=== PATIENT | male | born 1970 | race Two or more races ===

== ENCOUNTER 2022-06-01 07:16 | Emergency (ER) | payer SELFPAY ==
[~2022-06-01] VITALS: Ht 177.8 cm; Wt 124.5 kg
[2022-06-01] MEDS ORDERED: KETOROLAC 60MG/2ML VIAL IM ONE (07:45)
[2022-06-01 08:22] VITALS: BP 180/102
[2022-06-01] MEDS ORDERED: IBUP-2028 PO (08:24)
== END 2022-06-01 08:50 | disposition home or self-care (01) ==
LOC: ER 07:16
DX: M25.551 Pain in right hip (principal); M25.561 Pain in right knee; W01.0XXA Fall on same level from slipping, tripping and stumbling without subsequent striking against object, initial encounter; Y93.9 Activity, unspecified; Y92.9 Unspecified place or not applicable
CPT/HCPCS: 73502; 73560; 96372; 99284; J1885

== ENCOUNTER 2023-07-18 00:49 | Emergency (ER) | payer SELFPAY ==
[~2023-07-18] VITALS: Ht 182.9 cm; Wt 113.0 kg
[~2023-07-18 00:49] MED LIST: IBUP-2028 PO
[2023-07-18 01:07] VITALS: O2SAT 94
[2023-07-18] MEDS ORDERED: ASPIRIN 81MG TABLET PO ONE (02:30)
[2023-07-18 02:54] LABS: BASOPHILS % 0.3 % (0.0-2.0); EOSINOPHILS % 1.8 % (0.0-5.0); HEMOGLOBIN. 15.4 g/dL (14.0-18.0); LYMPHOCYTES % 23.3 % (20.0-50.0); MEAN CORPUSCULAR HEMOGLOBIN 31.7 pg (28.0-32.0); MEAN CORPUSCULAR HGB CONC 34.1 g/dL (31.0-37.0); MEAN CORPUSCULAR VOLUME 92.8 fL (80.0-94.0); MEAN PLATELET VOLUME 9.4 fl (7.4-10.4); MONOCYTES % 6.8 % (2.0-8.0); NEUTROPHILS % 67.8 % (40.0-76.0); PLATELET 142 x1000/uL (130-400); RED BLOOD CELL COUNT 4.85 mill/uL (4.7-6.1); WHITE BLOOD COUNT 8.5 x1000/uL (4.5-11.0)
[2023-07-18 03:01] LABS: CHLORIDE 106 mEq/L (98-107); INDEX HEMOLYSI 1 (1-3); INDEX ICTERIC 1 (1-4); INDEX LIPEMIC 1 (1-3); SODIUM 138 mEq/L (136-145)
[2023-07-18 03:12] LABS: ALANINE AMINOTRANSFERASE 73 IU/L (13-61); ALBUMIN 3.5 g/dL (3.4-5.0); ASPARTATE AMINOTRANSFERASE 65 IU/L (15-37); BILIRUBIN TOTAL 0.6 mg/dL (0.1-1.0); CALCIUM 8.8 mg/dL (8.5-10.1); CARBON DIOXIDE 27 mEq/L (21-32); CREATININE 0.9 mg/dL (0.6-1.3); ETHANOL BLOOD < 10 mg/dL (<10); GLUCOSE 126 mg/dL (70-105); NT PRO B-TYPE NATRIURETIC PEP 19 pg/mL (5-125); PROTEIN TOTAL 7.8 g/dL (6.0-8.3); TROPONIN I HIGH SENSITIVITY 5 ng/L (<78); UREA NITROGEN BLOOD 16 mg/dL (7-21)
[2023-07-18 03:43] LABS: *AMPHETAMINES SCREEN URINE NEGATIVE (NEGATIVE); *BARBITURATES SCREEN URINE NEGATIVE (NEGATIVE); *BENZODIAZEPINES SCREEN URINE NEGATIVE (NEGATIVE); *COCAINE SCREEN URINE NEGATIVE (NEGATIVE); CANNABINOID URINE SCREEN NEGATIVE (NEGATIVE); ECSTASY MDMA SCREEN URINE NEGATIVE (NEGATIVE); METHADONE URINE SCREEN NEGATIVE (NEGATIVE); OPIATES URINE SCREEN NEGATIVE (NEGATIVE); PHENCYCLIDINE URINE SCREEN NEGATIVE (NEGATIVE)
[2023-07-18 04:04] VITALS: BP 145/92; PULSE 98; RESP 16; TEMP 98.2
== END 2023-07-18 04:04 | disposition home or self-care (01) ==
LOC: ER 00:49
DX: R42 Dizziness and giddiness (principal); E03.9 Hypothyroidism, unspecified; F17.200 Nicotine dependence, unspecified, uncomplicated
CPT/HCPCS: 80053; 80305; 80320; 83880; 84443; 85025; 85379; 84484; 36415; 71045; 93005; 99285; Z7610; G0480

== ENCOUNTER 2023-09-18 19:46 | Emergency (ER) | payer SELFPAY ==
[~2023-09-18] VITALS: Ht 182.9 cm; Wt 109.0 kg
[2023-09-18 20:28] VITALS: TEMP 99.5; O2SAT 95
[2023-09-18] MEDS ORDERED: KETOROLAC 15MG/ML VIAL IM ONE (20:30)
[2023-09-18] MEDS ORDERED: LIDO700A15 TP (21:25)
[2023-09-18] MEDS ORDERED: NAPR-1176 MT (21:25)
[2023-09-18] MEDS ORDERED: CYCL5TAB MT (21:25)
[2023-09-18 21:45] VITALS: BP 169/82; PULSE 93; RESP 16
== END 2023-09-18 21:44 | disposition home or self-care (01) ==
LOC: ER 19:46
DX: M54.50 Low back pain, unspecified (principal)
CPT/HCPCS: 96372; 99283; J1885; Z7610

== ENCOUNTER 2024-07-02 14:04 | Emergency (ER) | payer OTHER ==
[~2024-07-02] VITALS: Ht 175.3 cm; Wt 95.2 kg
[~2024-07-02 14:04] MED LIST changes: +CYCL5TAB MT; +LIDO700A15 TP; +NAPR-1176 MT
[2024-07-02 14:47] VITALS: BP 170/97; PULSE 66; RESP 16; TEMP 97.8; O2SAT 97
[2024-07-02] MEDS ORDERED: CEFTRIAXONE SODIUM 500MG VIAL IM ONE (16:45)
[2024-07-02 18:12] LABS: CLARITY URINE CLEAR (CLEAR); COLOR URINE YELLOW (YELLOW); GLUCOSE URINE NEGATIVE (NEGATIVE); KETONES URINE NEGATIVE (NEGATIVE); LEUKOCYTE ESTERASE URINE TRACE (NEGATIVE); NITRITE URINE NEGATIVE (NEGATIVE); OCCULT BLOOD URINE NEGATIVE (NEGATIVE); PH URINE 5.5 (4.5-8.0); PROTEIN URINE NEGATIVE (NEGATIVE); SPECIFIC GRAVITY URINE 1.022 (1.005-1.030)
[2024-07-02] MEDS ORDERED: DOXY100C5 MT (18:17)
[2024-07-02 18:56] LABS: BACTERIA URINE TRACE; RBC URINE NONE SEEN /hpf (0-2); SQUAMOUS EPITHELIAL CELL URINE FEW /lpf (RARE/1+); WBC URINE 0-2 /hpf (0-2)
[2024-07-02] MEDS: CEFTRIAXONE SODIUM 500MG VIAL IM NR (19:22)
[2024-07-05 04:08] LABS: CHLAMYDIA TRACHOMATIS NAA Negative (Negative); NEISSERIA GONORRHOEAE NAA Negative (Negative)
== END 2024-07-02 19:40 | disposition home or self-care (01) ==
LOC: ER 14:04
DX: Z20.2 Contact with and (suspected) exposure to infections with a predominantly sexual mode of transmission (principal); Z79.899 Other long term (current) drug therapy
CPT/HCPCS: 99283; 87491; 87591; 81003; 96372; J0696

== ENCOUNTER 2024-10-16 00:45 | Emergency (ER) | payer OTHER ==
[~2024-10-16] VITALS: Ht 182.9 cm; Wt 109.0 kg
[~2024-10-16 00:45] MED LIST changes: -CYCL5TAB MT; +CYCL5TAB3 MT; +DOXY100C5 MT
[2024-10-16 00:54] VITALS: O2SAT 96
[2024-10-16 03:07] LABS: CLARITY URINE CLOUDY (CLEAR); COLOR URINE YELLOW (YELLOW); GLUCOSE URINE NEGATIVE (NEGATIVE); KETONES URINE NEGATIVE (NEGATIVE); LEUKOCYTE ESTERASE URINE NEGATIVE (NEGATIVE); NITRITE URINE NEGATIVE (NEGATIVE); OCCULT BLOOD URINE NEGATIVE (NEGATIVE); PROTEIN URINE NEGATIVE (NEGATIVE); SPECIFIC GRAVITY URINE 1.017 (1.005-1.030); UROBILINOGEN URINE 0.2 E.U./dL (0.2-1.0)
[2024-10-16 03:12] LABS: BASOPHILS % 0.4 % (0.0-2.0); EOSINOPHILS % 1.8 % (0.0-5.0); HEMATOCRIT. 46.8 % (42.0-52.0); HEMOGLOBIN. 15.7 g/dL (14.0-18.0); LYMPHOCYTES % 21.7 % (20.0-50.0); MEAN CORPUSCULAR HEMOGLOBIN 30.7 pg (28.0-32.0); MEAN CORPUSCULAR HGB CONC 33.5 g/dL (31.0-37.0); MEAN CORPUSCULAR VOLUME 91.7 fL (80.0-94.0); MEAN PLATELET VOLUME 8.3 fl (7.4-10.4); MONOCYTES % 5.6 % (2.0-8.0); NEUTROPHILS % 70.5 % (40.0-76.0); PLATELET 146 x1000/uL (130-400); RED CELL DISTRIBUTION WIDTH 14.2 % (11.6-14.6); WHITE BLOOD COUNT 8.4 x1000/uL (4.5-11.0)
[2024-10-16] MEDS: KETOROLAC 30MG/ML VIAL IM ONE (03:17)
[2024-10-16 03:19] LABS: CHLORIDE 104 mEq/L (98-107); POTASSIUM 4.1 mEq/L (3.5-5.1); SODIUM 138 mEq/L (136-145)
[2024-10-16 03:20] LABS: CALCIUM 9.9 mg/dL (8.7-10.4); CARBON DIOXIDE 27 mEq/L (21-32)
[2024-10-16 03:25] LABS: GLUCOSE 112 mg/dL (70-105); UREA NITROGEN BLOOD 15 mg/dL (9-23)
[2024-10-16 03:26] LABS: ALANINE AMINOTRANSFERASE 38 IU/L (10-49)
[2024-10-16 03:27] LABS: ALBUMIN 4.7 g/dL (3.2-4.8); ASPARTATE AMINOTRANSFERASE 34 IU/L (<34); BILIRUBIN DIRECT 0.3 mg/dL (<=3.0); BILIRUBIN TOTAL 0.9 mg/dL (0.1-1.0); PROTEIN TOTAL 7.6 g/dL (6.0-8.3)
[2024-10-16 03:28] LABS: BACTERIA URINE NONE SEEN; RBC URINE 0-2 /hpf (0-2); SQUAMOUS EPITHELIAL CELL URINE NONE SEEN /lpf (RARE/1+); WBC URINE 0-2 /hpf (0-2)
[2024-10-16] MEDS ORDERED: TOPUD MT (03:58)
[2024-10-16] MEDS ORDERED: LIDO700A15 TP (03:58)
[2024-10-16 04:25] VITALS: BP 156/78; PULSE 111; RESP 18; TEMP 36.9; O2SAT 96
== END 2024-10-16 04:45 | disposition home or self-care (01) ==
LOC: ER 00:45
DX: R07.89 Other chest pain (principal); Z79.899 Other long term (current) drug therapy; Z79.1 Long term (current) use of non-steroidal anti-inflammatories (NSAID)
CPT/HCPCS: 99284; 80076; 80048; 81003; 83690; 85025; 36415; 71101; 96372; J1885

== ENCOUNTER 2025-04-18 04:01 | Emergency (ER) | payer OTHER ==
[~2025-04-18] VITALS: Ht 165.1 cm; Wt 109.0 kg
[~2025-04-18 04:01] MED LIST changes: +LIDO-53 TP; -LIDO700A15 TP; +TOPUD MT
[2025-04-18 04:13] VITALS: O2SAT 96
[2025-04-18] MEDS ORDERED: IBUP-2028 MT (05:46)
[2025-04-18 06:13] VITALS: BP 159/86; PULSE 71; RESP 18; TEMP 36.9; O2SAT 98
== END 2025-04-18 06:25 | disposition home or self-care (01) ==
LOC: ER 04:01
DX: M25.473 Effusion, unspecified ankle (principal); Z79.899 Other long term (current) drug therapy
CPT/HCPCS: 73610; 99283

== ENCOUNTER 2025-04-29 20:50 | Emergency (ER) | payer OTHER ==
[~2025-04-29] VITALS: Ht 182.9 cm; Wt 113.0 kg
[~2025-04-29 20:50] MED LIST changes: +IBUP-2028 MT
[2025-04-29 21:13] VITALS: O2SAT 96
[2025-04-30] MEDS: TETANUS, DIPHTHERIA, PERTUSSIS VAC/PF 0.5ML (>10YR OLD) IM ONE (00:43)
[2025-04-30 01:30] VITALS: BP 147/91; PULSE 72; RESP 15; TEMP 37; O2SAT 96
== END 2025-04-30 01:42 | disposition home or self-care (01) ==
LOC: ER 20:50
DX: S91.311A Laceration without foreign body, right foot, initial encounter (principal); Z79.1 Long term (current) use of non-steroidal anti-inflammatories (NSAID); X58.XXXA Exposure to other specified factors, initial encounter; Y93.89 Activity, other specified; Y92.89 Other specified places as the place of occurrence of the external cause; Y99.8 Other external cause status
CPT/HCPCS: 73630; 90471; 90715; 99283